=== PATIENT | male | born 1950 | race Caucasian/White ===

== ENCOUNTER 2017-07-05 10:11 | Day surgery (SDC) | payer MEDICARE ==
[2017-07-04 12:04] VITALS: BMI 31.9
[2017-07-05] MEDS ORDERED: Propofol 10 mg/ml Inj (20 ML) ONE (12:24)
[2017-07-05] MEDS ORDERED: Lactated Ringer's 500 ML IV ONE ×2 (12:26)
[2017-07-05 13:12] VITALS: TEMP 98
[2017-07-05 14:56] VITALS: RESP 12
[2017-07-05 15:00] VITALS: BP 145/68; PULSE 80; O2SAT 99
== END 2017-07-05 15:36 | disposition home or self-care (01) ==
LOC: C.ENDO 10:11
PROVIDERS: ATTEND Internal Medicine Gastroenterology
DX: R19.7 Diarrhea, unspecified (principal); K64.1 Second degree hemorrhoids; K63.5 Polyp of colon; K57.30 Diverticulosis of large intestine without perforation or abscess without bleeding; E11.9 Type 2 diabetes mellitus without complications; I10 Essential (primary) hypertension; J44.9 Chronic obstructive pulmonary disease, unspecified; M10.9 Gout, unspecified; Z79.84 Long term (current) use of oral hypoglycemic drugs
CPT/HCPCS: 45380; 82948; 88305; J2001; J2704; J7120

== ENCOUNTER 2017-07-19 10:36 | Day surgery (SDC) | payer MEDICARE ==
[2017-07-04 12:04] VITALS: BMI 31.9
[2017-07-19] MEDS ORDERED: Midazolam 2 MG/2 ML VIAL ONE (12:03)
[2017-07-19] MEDS ORDERED: Propofol 10 mg/ml Inj (20 ML) ONE ×2 (12:03→12:37)
[2017-07-19] MEDS ORDERED: Lactated Ringer's 500 ML IV ONE (12:26)
[2017-07-19 13:34] VITALS: TEMP 98
[2017-07-19 15:25] VITALS: BP 128/87; PULSE 89; RESP 18; O2SAT 97
== END 2017-07-19 15:24 | disposition home or self-care (01) ==
LOC: C.ENDO 10:36
PROVIDERS: ATTEND Internal Medicine Gastroenterology
DX: K31.7 Polyp of stomach and duodenum (principal); K21.0 Gastro-esophageal reflux disease with esophagitis; K29.70 Gastritis, unspecified, without bleeding
CPT/HCPCS: 43239; 82948; 88305; 88312; 88313; 88342; J2001; J2250; J2704; J7120